=== PATIENT | female | born 1955 | race Hispanic/Latino ===

== ENCOUNTER 2018-01-13 16:14 | Inpatient (IN) | payer MEDICAID ==
--- NOTE | 2018-01-13 17:43 | ED PDOC ---
HPI: Psych/Substance Abuse Time Seen by Provider: 01/13/18 16:31 Chief Complaint (Nursing): Psychiatric Evaluation Chief Complaint (Provider): Depression History Per: Patient History/Exam Limitations: no limitations Onset/Duration Of Symptoms: Persistent Current Symptoms Are (Timing): Still Present Suicide/Self Injury Attempted (Context): None Associated Symptoms: Anxiety, Depression, Suicidal Thoughts Additional Complaint(s): Patient is a 62 year old female with a history of depression and anxiety who presents to the ED with complaints of worsening depression. Patient states that her son recently moved out and used to visit her daily, but now only visits her weekly. Patient states she feels lonely and has recently had thoughts to hurt herself, although she does not have a plan to do so. Patient denies any prior suicide attempts, visual or auditory hallucinations. Patient states she is compliant with her medications but does not feel like they are helping. Otherwise: (-) fever (-) SOB (-) chest pain (-) abdominal pain. PMD: Magnus Past Medical History Reviewed: Historical Data, Nursing Documentation, Vital Signs Vital Signs: Last Vital Signs Temp 98.5 F 01/13/18 16:18 Pulse 92 H 01/13/18 16:18 Resp 16 01/13/18 16:18 BP 124/84 01/13/18 16:18 Pulse Ox 96 01/13/18 16:18 - Medical History PMH: Anxiety, Arthritis, Depression, Diabetes, Emphysema - Family History Family History: States: Unknown Family Hx - Living Arrangements Living Arrangements: Other (halfway) - Social History Current smoker - smoking cessation education provided: Yes (1/2ppd) Alcohol: None Drugs: Denies - Home Medications Home Medications: Ambulatory Orders Medication Instructions Recorded Albuterol HFA [Ventolin HFA 90 2 puff IH Q4 PRN 01/14/18 mcg/actuation (8 g)] Dicyclomine [Bentyl] 20 mg PO QID 01/14/18 Fluticasone/Vilanterol [Breo 1 each IH DAILY 01/14/18 Ellipta 200-25 Mcg INH] Ibuprofen [Advil] 200 mg PO Q8 PRN 01/14/18 LORazepam [Ativan] 0.5 mg PO DAILY PRN 01/14/18 Naproxen [Naprosyn] 500 mg PO BID 02/15/18 QUEtiapine [SEROquel] 50 mg PO HS 01/14/18 QUEtiapine [SEROquel] 100 mg PO HS 01/14/18 Tiotropium [place] Inhaler 1 inhaler INH DAILY 01/14/18 [Spiriva Inhalation Handihaler Device] Tiotropium [Spiriva] 18 mcg IH DAILY 01/14/18 Zolpidem [Ambien] 10 mg PO HS PRN 01/14/18 buPROPion [Bupropion HCl] 75 mg PO DAILY 01/14/18 oxyCODONE/Acetaminophen [Percocet 1 tab PO Q6 PRN 01/14/18 5/325 mg Tab] - Allergies Allergies/Adverse Reactions: Allergies Allergy/AdvReac Type Severity Reaction Status Date / Time No Known Allergies Allergy Verified 01/13/18 16:18 Review of Systems Psych: Positive for: Anxiety, Depression, Suicidal ideation Physical Exam - Reviewed Nursing Documentation Reviewed: Yes Vital Signs Reviewed: Yes - Physical Exam Appears: Positive for: Non-toxic, No Acute Distress Head Exam: Positive for: NORMOCEPHALIC Skin: Positive for: Normal Color, Warm, Dry Eye Exam: Positive for: Normal appearance. Negative for: Nystagmus Neck: Positive for: Supple Cardiovascular/Chest: Positive for: Regular Rate, Rhythm Respiratory: Positive for: Normal Breath Sounds Gastrointestinal/Abdominal: Positive for: Soft. Negative for: Tenderness, Mass , Distended, Guarding - Laboratory Results Result Diagrams: 01/13/18 20:00 01/13/18 20:00 - ECG ECG: Positive for: Interpreted By Me, Viewed By Me ECG Rhythm: Positive for: Normal ST Segment, Sinus Rhythm Rate: 79 O2 Sat by Pulse Oximetry: 96 (RA) Pulse Ox Interpretation: Normal Medical Decision Making Medical Decision Makin Initial impression: Depression Patient placed on 1:1 observation secondary to suicidal ideation at 1645. Consult to CRISIS team placed at 1700. [phone] Crisis screened patient and request medical clearance. * EKG * Labs * UDrug * CXR * UA 2109 CXR: NAD Labs reviewed: no clinically significant abnormalities Patient is medically cleared for psychiatric evaluation. 223 Patient pending [facility] acceptance at patient's request. 2329 * EtOH serum 0000 Patient signed out to Aria Avina PA-C pending [facility] acceptance and EtOH serum. Scribe Attestation: Documented by Lin Bishop, acting as a scribe for Claudia Will PA-C. Provider Scribe Attestation: All medical record entries made by the Scribe were at my direction and personally dictated by me. I have reviewed the chart and agree that the record accurately reflects my personal performance of the history, physical exam, medical decision making, and the department course for this patient. I have also personally directed, reviewed, and agree with the discharge instructions and disposition. Disposition - Clinical Impression Clinical Impression: Suicidal ideation - Patient ED Disposition Is Patient to be Admitted: Transfer of Care - Disposition Disposition: Transfer of Care Disposition Time: 00:00 Condition: STABLE Patient Signed Over To: Aria Avina Handoff Comments: pending [facility] acceptance and EtOH serum
[2018-01-13 19:50] LABS: SQUAMOUS EPITHIAL 1 /hpf (0-5); URINE BILIRUBIN NEGATIVE (NEGATIVE); URINE BLOOD NEGATIVE (NEGATIVE); URINE CLARITY CLEAR (Clear); URINE COLOR STRAW (YELLOW); URINE GLUCOSE (UA) NEG (Normal); URINE LEUKOCYTE ESTERASE NEG Leu/uL (Negative); URINE NITRATE NEGATIVE (NEGATIVE); URINE PROTEIN NEGATIVE (NEGATIVE); URINE UROBILINOGEN 0.2-1.0 mg/dL (0.2-1.0)
[2018-01-13 20:04] LABS: BENZODIAZEPINES, UR NEGATIVE (NEGATIVE); OPIATES, UR NEGATIVE (NEGATIVE)
[2018-01-13 20:09] LABS: BARBITURATES, UR NEGATIVE (NEGATIVE); PHENCYCLIDINE, UR NEGATIVE (NEGATIVE)
[2018-01-13 20:40] LABS: BASO % 0.4 % (0.0-2.0); EOS # 0.1 K/uL (0.0-0.7); EOS % 1.3 % (0.0-4.0); LYMPH # 1.6 K/uL (1.0-4.3); LYMPH % 23.8 % (20.0-40.0); MEAN CELL VOLUME 96.8 fl (81.0-99.0); MEAN PLATELET VOLUME 8.7 fl (7.2-11.7); MONO # 0.5 K/uL (0.0-0.8); MONO % 7.4 % (0.0-10.0); NEUT # 4.6 K/uL (1.8-7.0); NEUT % 67.1 % (50.0-75.0); NRBC % 0.1 % (0.0-0.0); RBC 3.87 Mil/uL (3.80-5.20); RED CELL DISTRIBUTION WIDTH 14.6 % (11.5-14.5); WHITE BLOOD COUNT 6.9 K/uL (4.8-10.8)
[2018-01-13 20:43] LABS: ALB/GLOB RATIO 1.5 (1.0-2.1); ALBUMIN 3.8 g/dL (3.5-5.0); ALT/SGPT 25 U/L (9-52); AST/SGOT 15 U/L (14-36); BLOOD UREA NITROGEN 16 mg/dl (7-17); CALCIUM 9.1 mg/dL (8.4-10.2); GFR AFRICAN-AMERICAN > 60; GFR NON-AFRICAN AMERICAN > 60
--- NOTE | 2018-01-14 05:18 | ED PDOC ---
- Laboratory Results Result Diagrams: 01/13/18 20:00 01/13/18 20:00 - ECG O2 Sat by Pulse Oximetry: 95 <Aria Avina - Last Filed: 01/14/18 05:15> - Laboratory Results Result Diagrams: 01/13/18 20:00 01/13/18 20:00 <Grant Thomas - Last Filed: 01/14/18 06:59> - Progress ED Course And Treament: 00:00 CAse endorsed to typewriters functional tester from Nicolette BONE pending [facility] eval 1:30 Patient resting comfortably; no distress 3:00 Patient resting comfortably; no distress 4:30 Patient sleeping; no distress 6:00 Patient awake, no distress (Aria Avina) Disposition <Aria Avina - Last Filed: 01/14/18 05:15> - POA Present On Arrival: None - Disposition Disposition: Transfer of Care Disposition Time: 07:00 Patient Signed Over To: Rachel Mantilla Handoff Comments: pending [facility] eval <Grant Thomas - Last Filed: 01/14/18 06:59> - Clinical Impression Clinical Impression: Suicidal ideation - Disposition Condition: STABLE Forms: [facility] (Italian) Addendum <Aria Avina - Last Filed: 01/14/18 05:15> <Grant Thomas - Last Filed: 01/14/18 06:59> Addendum: 01/14/18 06:58 Pt. stable. Pending decision by [facility]. Will endorse to dR. Mantilla. ( Grant Thomas)
--- NOTE | 2018-01-14 07:32 | ED PDOC ---
- Laboratory Results Result Diagrams: 01/13/18 20:00 01/15/18 06:50 - ECG O2 Sat by Pulse Oximetry: 95 Medical Decision Making Medical Decision Makin:00 --Patient was transferred to vt by Dr. Thomas, pending [facility] [place]. Disposition - Clinical Impression Clinical Impression: Depression - POA Present On Arrival: None - Disposition Disposition: Admitted as In-Patient Disposition Time: 07:55 Condition: STABLE
[2018-01-14] MEDS ORDERED: Magnesium Hydroxide Susp 30 ml UD PO PRN (09:21)
[2018-01-14] MEDS ORDERED: Alum-Mag Hydrox-Simethicone Susp (30 mL) PO PRN (09:21)
[2018-01-14] MEDS ORDERED: Bismuth Subsalicylate 262 mg/15 ml Sus (240 ml) PO PRN (09:21)
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
--- NOTE | 2018-01-14 10:56 | CARD ---
APPROVED REPORT EKG Measurement Heart [id number] <Conclusion> Normal sinus rhythm Normal ECG
[2018-01-14] MEDS ORDERED: DiphenhydrAMINE 50 mg/ml Inj IM PRN (11:35)
--- NOTE | 2018-01-14 11:42 | RAD ---
HISTORY: Medical clearance. COMPARISON: No prior. TECHNIQUE: Chest PA and lateral FINDINGS: LUNGS: Minor linear atelectasis and or scarring right middle lobe region. There may also be some minor left basilar atelectasis. Bilateral of paratracheal densities most likely represents great vessels PLEURA: No significant pleural effusion identified. No pneumothorax apparent. CARDIOVASCULAR: Heart appears enlarged. OSSEOUS STRUCTURES: No significant abnormalities. VISUALIZED UPPER ABDOMEN: Normal. OTHER FINDINGS: None. IMPRESSION: Minor linear atelectasis and or scarring right middle lobe region. There may also be some minor left basilar atelectasis.
[2018-01-14] MEDS ORDERED: Pneumococcal 23-Valent Vaccine IM ONE (13:07)
[2018-01-14 15:05] LABS: HDL CHOLESTEROL 51 MG/DL (30-70)
[2018-01-14 15:17] LABS: LDL CHOLESTEROL 109 mg/dL (0-129)
[2018-01-14] MEDS ORDERED: Influenza Vaccine 18yr & older 0.5 ML/45 MCG SYR IM ONE (17:59)
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
[2018-01-14] MEDS: Naproxen 500 MG TAB PO SCH (22:06)
[2018-01-14] MEDS: Albuterol HFA 90 mcg/actuation (8 g) INH PRN (22:07)
[2018-01-14] MEDS ORDERED: Albuterol-Ipratrop 3 mg / 0.5 (3 ml) UD INH PRN (23:20)
[2018-01-15 07:29] LABS: BLOOD UREA NITROGEN 15 mg/dl (7-17); GFR AFRICAN-AMERICAN > 60; GFR NON-AFRICAN AMERICAN > 60; HDL CHOLESTEROL 51 MG/DL (30-70)
[2018-01-15 07:40] LABS: LDL CHOLESTEROL 123 mg/dL (0-129)
[2018-01-15 07:46] LABS: T4 7.57 ug/dl (5.5-11.0)
[2018-01-15] MEDS: Naproxen 500 MG TAB PO SCH ×2 (08:50→21:42)
[2018-01-15] MEDS: Tiotropium 18 mcg Cap For Inhalation INH SCH (08:54)
[2018-01-15 17:32] LABS: FOLATE 10.1 ng/mL
[2018-01-15] MEDS: Oxycodone/Acetaminophen 5/325 mg Tab PO PRN (17:50)
--- NOTE | 2018-01-15 18:40 | PCM.PYCHPN ---
Psychiatric Progress Note - Psychiatric Progress Note Patient seen today, length of contact: chart reviewed case discussed with team Patient Chief Complaint: pt reports slept last night awakening feeling rested, notes review that pt slept 7 hours un interrupted sleep. reports feeling "little calmer-feels better with 0.5mg p 12n and 0.5mg po 22:00". staff report that pt has been adherent with treatment. 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 Problems Identified/Issues Discussed: alteration in mood alteration self care alteration in coping Medical Problems: per chart Diagnostic Results: per psychiatry per medicine per nursing per social work DSM 5 Symptoms Update: anxiety, some pacing, somewhat decreased frustration tolerance although pleasant on unit Medication Change: No Medical Record Reviewed: Yes Consults ordered or reviewed: pt being followed by hospitalist Mental Status Examination - Cognitive Function Orientation: Person, Place, Situation, Time Fund of Knowledge: WN Decription of patient's judgement and insights: impaired - Mood Mood: Depressed, Anxious - Affect Affect: Constricted - Formal Thought Process Formal Thought Process: No Impairment - Homicidal Ideation Homicidal Ideation: No Goal/Treatment Plan - Goal/Treatment Plan Need for Continued Stay: Remain at risks for inpatient hospitalization, Severe depression anxiety, Discharge may exacerbated symptoms Progress Toward Problem(s) and Goals/Treatment Plan: inpt admission per attending vital signs and clinical observation per protocol and per status prns per protocol hospitalist consult nutrition consult discharge planning in progress Estimated Date of D/C: 01/20/18 - Smoking Cessation Smoking Cessation Initiated: No Reason for not providing: pt deferred
--- NOTE | 2018-01-16 06:32 | CON ---
INITIAL CONSULTATION DATE: HISTORY OF PRESENT ILLNESS: This is a 62-year-old female with history of multiple medical problems including degenerative spine disease and degenerative joint disease on chronic pain management. The patient also has multiple abdominal surgery for hernia repair. The patient was admitted to psych floor for depression and decompensation. Medical consultation called for medical followup while the patient is in Psychiatric cool. The patient denied to have any chest pain, shortness of breath, nausea, vomiting and other review of system is negative. ALLERGIES: NO KNOWN ALLERGY. MEDICATIONS: As per MAR. PAST MEDICAL HISTORY: Denied smoking, ETOH or substance abuse. FAMILY HISTORY: Not contributory. PHYSICAL EXAMINATION: GENERAL: The patient is in bed, comfortable, not in any cardiopulmonary distress. VITAL SIGNS: Blood pressure 116/72, temperature 98.2, respiratory rate 18 and pulse 81. HEENT: Pupils equal, reactive to light. Normal-appearing mucosa of the conjunctivae, oropharyngeal and nasal membrane mucosa. NECK: Supple. No JVD. No carotid bruit. No lymph node. No thyromegaly. CHEST AND LUNGS: Bilateral good air exchange. No rales. No rhonchi. CARDIOVASCULAR SYSTEM: PMI not localized. S1 and S2. No additional sounds. ABDOMEN: Normoactive bowel sounds. No tenderness. No organomegaly. No masses. EXTREMITIES: No cyanosis. No clubbing. No edema. 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 No neurological deficits could be appreciated. ASSESSMENT: Degenerative spine disease, mixed degenerative joint disease, status post recurrent abdominal hernia repair. PLAN: Continue current medications. Resume the patient's home medications. Followup blood work done and physical therapy. Anthony Gonsales MD
[2018-01-16] MEDS: Tiotropium 18 mcg Cap For Inhalation INH SCH (08:49)
[2018-01-16] MEDS: Oxycodone/Acetaminophen 5/325 mg Tab PO PRN ×2 (11:40→21:24)
[2018-01-16] MEDS: Albuterol HFA 90 mcg/actuation (8 g) INH PRN (21:20)
[2018-01-17] MEDS: Tiotropium 18 mcg Cap For Inhalation INH SCH (08:29)
[2018-01-17] MEDS: Oxycodone/Acetaminophen 5/325 mg Tab PO PRN ×2 (08:33→19:32)
[2018-01-17] MEDS: Albuterol HFA 90 mcg/actuation (8 g) INH PRN (08:39)
--- NOTE | 2018-01-17 11:39 | PN ---
DATE: 01/16/2018 DAILY PROGRESS NOTE SUBJECTIVE: The patient is seen on 01/16/2018. Her pain was controlled. PHYSICAL EXAMINATION: VITAL SIGNS: Blood pressure of 101/62, temperature of 98.2, respiratory rate of 20 and pulse of 80. HEENT: Pupils are equal and reactive to light. Normal-appearing mucosa of the conjunctivae, oropharynx, and nasal membrane mucosa. NECK: Supple. No JVD. No carotid bruit. No lymph node. No thyromegaly. CHEST AND LUNGS: Bilateral symmetrical expansion. Good air exchange. No rales and no rhonchi. CARDIOVASCULAR SYSTEM: PMI not localized. S1 and S2. No additional sounds. ABDOMEN: Normoactive bowel sounds. No tenderness. No organomegaly. No masses. EXTREMITIES: No cyanosis. No clubbing. No edema. CENTRAL NERVOUS SYSTEM: Alert, awake, and oriented x2. No neurological deficit could be appreciated. ASSESSMENT: 1. Degenerative spine disease with radicular pain. 2. Degenerative joint disease with bilateral knee osteoarthritis. 3. Obesity. 4. History of obstructive lung disease. PLAN: Continue current pain management as needed. Continue the bronchodilators as well as physical therapy. We will follow up with you. Anthony Gonsales MD
--- NOTE | 2018-01-17 16:41 | PCM.PYCHPN ---
Psychiatric Progress Note - Psychiatric Progress Note Patient seen today, length of contact: late note for 01/16/18 chart reviewed case discussed with team Patient Chief Complaint: reports doing somewhat better, continues to use walker with wheels seat, staff report pt is rx adherent, appears to be asking for both benzodiazepine ( lorazepam) and opiates on regular basis, reports chronic anxiety yet reports difficulty with energy and "getting things going am" Problems Identified/Issues Discussed: alteration in mood alteration self care alteration in coping Medical Problems: per chart Diagnostic Results: per psychiatry per medicine per nursing per social work DSM 5 Symptoms Update: alteration in mood alteration in pain control benzodiazepine, opiate,ambien Medication Change: No Medical Record Reviewed: Yes Consults ordered or reviewed: pt being followed by dr bragg Mental Status Examination - Cognitive Function Orientation: Person, Place, Situation, Time Fund of Knowledge: WN Decription of patient's judgement and insights: impaired - Mood Mood: Depressed, Anxious - Affect Affect: Constricted - Formal Thought Process Formal Thought Process: No Impairment - Homicidal Ideation Homicidal Ideation: No Goal/Treatment Plan - Goal/Treatment Plan Need for Continued Stay: Remain at risks for inpatient hospitalization, Severe depression anxiety, Discharge may exacerbated symptoms Progress Toward Problem(s) and Goals/Treatment Plan: inpt/milieu vital signs and clinical observation per protocol and per status prns per protocol start buproprion 75mg po am hospitalist consult nutrition consult discharge planning in progress Estimated Date of D/C: 01/20/18 - Smoking Cessation Smoking Cessation Initiated: No Reason for not providing: defered
--- NOTE | 2018-01-17 16:46 | PCM.PYCHPN ---
Psychiatric Progress Note - Psychiatric Progress Note Patient seen today, length of contact: late note for 01/16/18 chart reviewed case discussed with team Patient Chief Complaint: reports doing somewhat better, continues to use walker with wheels seat, staff report pt is rx adherent, appears to be asking for both benzodiazepine ( lorazepam) and opiates on regular basis, reports chronic anxiety yet reports difficulty with energy and "getting things going am" Problems Identified/Issues Discussed: alteration in mood alteration self care alteration in coping Medical Problems: per chart Diagnostic Results: per psychiatry per medicine per nursing per social work DSM 5 Symptoms Update: alteration in mood alteration pain control Medication Change: No Medical Record Reviewed: Yes Consults ordered or reviewed: pt being followed by dr bragg Mental Status Examination - Cognitive Function Orientation: Person, Place, Situation, Time Attention: WNL Concentration: WNL Association: WNL Fund of Knowledge: WN Decription of patient's judgement and insights: impaired - Mood Mood: Depressed, Anxious - Affect Affect: Constricted - Formal Thought Process Formal Thought Process: No Impairment - Homicidal Ideation Homicidal Ideation: No Goal/Treatment Plan - Goal/Treatment Plan Need for Continued Stay: Remain at risks for inpatient hospitalization, Severe depression anxiety, Discharge may exacerbated symptoms Progress Toward Problem(s) and Goals/Treatment Plan: inpt/milieu vital signs and clinical observation per protocol and per status prns per protocol start buproprion sr 150mg po hospitalist consult nutrition consult discharge planning in progress Estimated Date of D/C: 01/20/18 - Smoking Cessation Smoking Cessation Initiated: No Reason for not providing: pt defers
[2018-01-18] MEDS: buPROPion SR 150 MG TABLET PO SCH (08:34)
[2018-01-18] MEDS: Tiotropium 18 mcg Cap For Inhalation INH SCH (08:34)
--- NOTE | 2018-01-18 11:26 | PCM.PYCHPN ---
Psychiatric Progress Note - Psychiatric Progress Note Patient seen today, length of contact: Patient evaluated, case discussed with team, chart reviewed Patient Chief Complaint: "I'm depressed." Problems Identified/Issues Discussed: Patient continues to report depressed mood in the context of having social stressors, lack of financial resources and not wanting to return to her home. When told she will be discharged in a few days, patient makes vague suicidal ideation comments, without any plan or intent. Patient reports that she misses her dog and feels depressed and lonely. She reports intermittent feelings of hopelessness and anxiety. Wellbutrin was increased today. Coping strategies to deal with her depression and anxiety were discussed. Psychoeducation provided on the importance of compliance with treatment and outpatient therapy. Medication Change: Yes (Wellbutrin increased to 150 mg PO Daily) Medical Record Reviewed: Yes Consults ordered or reviewed: Medicine consult Mental Status Examination - Cognitive Function Orientation: Person, Place, Situation, Time Memory: Intact Attention: WNL Concentration: WNL Association: WNL Fund of Knowledge: [facility] Decription of patient's judgement and insights: Fair I/J - Mood Mood: Depressed, Anxious - Affect Affect: Constricted - Formal Thought Process Formal Thought Process: No Impairment Psychotic Thoughts and Behaviors: No AH/VH/paranoia/delusions - Suicidal Ideation Suicidal Ideation: Yes Plan: Vague ideation w/o plan or intent; stated in response to not wanting to be discharged from the hospital - Homicidal Ideation Homicidal Ideation: No Goal/Treatment Plan - Goal/Treatment Plan Need for Continued Stay: Remain at risks for inpatient hospitalization, Severe depression anxiety, Discharge may exacerbated symptoms Progress Toward Problem(s) and Goals/Treatment Plan: MDD; CINDY -Increase Wellbutrin SR to 150 mg PO Daily -Continue Seroquel 150 mg PO HS -Individual and group therapy -Disposition planning -Obtain collateral history Estimated Date of D/C: 01/20/18
[2018-01-18] MEDS: Oxycodone/Acetaminophen 5/325 mg Tab PO PRN (13:17)
--- NOTE | 2018-01-18 22:18 | PN ---
DAILY PROGRESS NOTE DATE: 01/18/2018 SUBJECTIVE: The patient is seen today, 01/18/2018. She is not in any cardiopulmonary distress. The patient is complaining of burning sensation of both hands. PHYSICAL EXAMINATION: VITAL SIGNS: Blood pressure is 109/65, temperature 97.9, respiratory rate 18, and pulse 72. HEENT: Pupils are equal and reactive to light. Normal-appearing mucosa of the conjunctivae, oropharynx, and nasal membrane mucosa. NECK: Supple. No JVD. No carotid bruit. No lymph node. No thyromegaly. CHEST AND LUNGS: Bilaterally symmetrical expansion. Good air exchange. No rales. No rhonchi. CARDIOVASCULAR: PMI not localized. S1 and S2. No additional sounds. ABDOMEN: Normoactive bowel sounds. No tenderness. No organomegaly. No masses. EXTREMITIES: No cyanosis. No clubbing. No edema. CENTRAL NERVOUS SYSTEM: Alert, awake, and oriented x3. No neurological deficit could be appreciated. ASSESSMENT: Degenerative joint and spine disease, obstructive lung disease, bilateral burning sensation of both hands with vitamin B12 is 247 likely secondary to vitamin B12 deficiency. PLAN: We will order vitamin B12 daily for . Continue current medications. Anthony Gonsales MD
[2018-01-19] MEDS: Albuterol HFA 90 mcg/actuation (8 g) INH PRN (03:13)
[2018-01-19] MEDS: Oxycodone/Acetaminophen 5/325 mg Tab PO PRN ×2 (08:38→18:17)
[2018-01-19] MEDS: buPROPion SR 150 MG TABLET PO SCH (08:40)
[2018-01-19] MEDS: Tiotropium 18 mcg Cap For Inhalation INH SCH (08:40)
[2018-01-19] MEDS: Thiamine 100 mg/ml Inj IM SCH (08:41)
--- NOTE | 2018-01-19 09:27 | PCM.PYCHPN ---
Psychiatric Progress Note - Psychiatric Progress Note Patient seen today, length of contact: Patient evaluated, case discussed with team, chart reviewed Patient Chief Complaint: "I'm depressed." Problems Identified/Issues Discussed: Patient continues to report depressed mood. She denies current suicidal ideation/plan/intent. She reports low motivation to care for herself. She denies adverse effects to medications Medication Change: No Medical Record Reviewed: Yes Consults ordered or reviewed: Medicine consult Mental Status Examination - Cognitive Function Orientation: Person, Place, Situation, Time Memory: Intact Attention: WNL Concentration: WNL Association: WNL Fund of Knowledge: [facility] Decription of patient's judgement and insights: Fair I/J - Mood Mood: Depressed, Anxious - Affect Affect: Constricted - Formal Thought Process Formal Thought Process: No Impairment Psychotic Thoughts and Behaviors: No AH/VH/paranoia/delusions - Suicidal Ideation Suicidal Ideation: No - Homicidal Ideation Homicidal Ideation: No Goal/Treatment Plan - Goal/Treatment Plan Need for Continued Stay: Remain at risks for inpatient hospitalization, Severe depression anxiety, Discharge may exacerbated symptoms Progress Toward Problem(s) and Goals/Treatment Plan: MDD; CINDY; Personality Disorder NOS -Continue Wellbutrin SR 150 mg PO Daily -Continue Seroquel 150 mg PO HS -Individual and group therapy -Disposition planning -Obtain collateral history -PT evaluation Estimated Date of D/C: 01/21/18
--- NOTE | 2018-01-19 20:58 | PN ---
DAILY PROGRESS NOTE DATE: 01/19/2018 SUBJECTIVE: The patient is seen today, 01/19/2018. She is not in any cardiopulmonary distress. The patient was started on vitamin B12 injections. PHYSICAL EXAMINATION: VITAL SIGNS: Blood pressure 96/69, temperature 98.2, respiratory rate 19, and pulse 84. HEENT: Pupils are equal and reactive to light. Normal-appearing mucosa of the conjunctivae, oropharynx, and nasal membrane mucosa. NECK: Supple. No JVD. No carotid bruit. No lymph node. No thyromegaly. CHEST AND LUNGS: Bilaterally symmetrical expansion. Good air exchange. No rales. No rhonchi. CARDIOVASCULAR: PMI not localized. S1 and S2. No additional sounds. ABDOMEN: Normoactive bowel sounds. No tenderness. No organomegaly. No masses. EXTREMITIES: No cyanosis. No clubbing. No edema. CENTRAL NERVOUS SYSTEM: Alert, awake, and oriented x2. No neurological deficit could be appreciated. ASSESSMENT: 1. Obstructive lung disease, which is controlled on current bronchodilators. 2. Degenerative joint and spine disease. 3. Vitamin B12 deficiency. PLAN: Continue current medications and continue vitamin B12 injections. Anthony Gonsales MD
[2018-01-20] MEDS: Oxycodone/Acetaminophen 5/325 mg Tab PO PRN ×2 (06:38→19:54)
[2018-01-20] MEDS: Albuterol HFA 90 mcg/actuation (8 g) INH PRN (06:39)
[2018-01-20] MEDS: Tiotropium 18 mcg Cap For Inhalation INH SCH (09:02)
[2018-01-20] MEDS: Thiamine 100 mg/ml Inj IM SCH (09:03)
[2018-01-20] MEDS: buPROPion SR 150 MG TABLET PO SCH (09:04)
--- NOTE | 2018-01-20 10:13 | PCM.PYCHPN ---
Psychiatric Progress Note - Psychiatric Progress Note Patient seen today, length of contact: Patient evaluated, case discussed with team, chart reviewed Patient Chief Complaint: "I'm depressed." Problems Identified/Issues Discussed: Patient continues to report depressed mood, but reports that her mood is starting to improve. She denies current suicidal ideation/plan/intent. She is more motivated and goal oriented and interested in [facility] following discharge. She denies adverse effects to medications Medication Change: No Medical Record Reviewed: Yes Consults ordered or reviewed: Medicine consult, Physical Therapy Mental Status Examination - Cognitive Function Orientation: Person, Place, Situation, Time Memory: Intact Attention: WNL Concentration: WNL Association: [facility] Fund of Knowledge: [facility] Decription of patient's judgement and insights: Fair I/J - Mood Mood: Depressed, Anxious - Affect Affect: Constricted - Formal Thought Process Formal Thought Process: No Impairment Psychotic Thoughts and Behaviors: No AH/VH/paranoia/delusions - Suicidal Ideation Suicidal Ideation: No - Homicidal Ideation Homicidal Ideation: No Goal/Treatment Plan - Goal/Treatment Plan Need for Continued Stay: Severe depression anxiety, Discharge may exacerbated symptoms Progress Toward Problem(s) and Goals/Treatment Plan: MDD; CINDY; Personality Disorder NOS -Continue Wellbutrin SR 150 mg PO Daily -Continue Seroquel 150 mg PO HS -Individual and group therapy -Disposition planning- referral to [facility] -Obtain collateral history -Physical Therapy Estimated Date of D/C: 01/21/18 - Smoking Cessation Smoking Cessation Initiated: Yes
[2018-01-20 23:31] VITALS: O2SAT 95
[2018-01-21] MEDS: Albuterol HFA 90 mcg/actuation (8 g) INH PRN (05:49)
[2018-01-21] MEDS: Oxycodone/Acetaminophen 5/325 mg Tab PO PRN (05:49)
[2018-01-21] MEDS: Tiotropium 18 mcg Cap For Inhalation INH SCH (08:53)
[2018-01-21] MEDS: buPROPion SR 150 MG TABLET PO SCH (08:54)
[2018-01-21] MEDS: Thiamine 100 mg/ml Inj IM SCH (08:56)
--- NOTE | 2018-01-21 10:18 | PCM.PYCHPN ---
Psychiatric Progress Note - Psychiatric Progress Note Patient seen today, length of contact: Patient evaluated, case discussed with team, chart reviewed Patient Chief Complaint: "I'm depressed." Problems Identified/Issues Discussed: Patient reports that her depression is improving. She is more goal orient and motivated for PT. No adverse effects to medications reported. NO SI/HI/AH/VH. Medication Change: No Medical Record Reviewed: Yes Consults ordered or reviewed: Medicine consult, Physical Therapy Mental Status Examination - Cognitive Function Orientation: Person, Place, Situation, Time Memory: Intact Attention: WNL Concentration: WNL Association: WNL Fund of Knowledge: [facility] Decription of patient's judgement and insights: Fair I/J - Mood Mood: Depressed - Affect Affect: Constricted - Speech Speech: Appropriate - Formal Thought Process Formal Thought Process: No Impairment Psychotic Thoughts and Behaviors: No AH/VH/paranoia/delusions - Suicidal Ideation Suicidal Ideation: No - Homicidal Ideation Homicidal Ideation: No Goal/Treatment Plan - Goal/Treatment Plan Need for Continued Stay: Severe depression anxiety Progress Toward Problem(s) and Goals/Treatment Plan: MDD; CINDY; Personality Disorder NOS -Continue Wellbutrin SR 150 mg PO Daily -Continue Seroquel 150 mg PO HS -Individual and group therapy -Disposition planning- referral to [facility] -Obtain collateral history -Physical Therapy Estimated Date of D/C: 01/22/18
--- NOTE | 2018-01-21 21:08 | PN ---
DATE: 01/21/2018 DAILY PROGRESS NOTE SUBJECTIVE: The patient is seen today, 01/21/2018. She is not in any cardiopulmonary distress. PHYSICAL EXAMINATION: VITAL SIGNS: Blood pressure is 101/64, temperature 97.1, respiratory rate 18, and pulse 70. HEENT: Pupils are equal and reactive to light. Normal-appearing mucosa of the conjunctivae, oropharynx, and nasal membrane mucosa. NECK: Supple. No JVD. No carotid bruit. No lymph node. No thyromegaly. CHEST AND LUNGS: Bilaterally symmetrical expansion. Good air exchange. No rales. No rhonchi. CARDIOVASCULAR: PMI not localized. S1 and S2. No additional sounds. ABDOMEN: Normoactive bowel sounds. No tenderness. No organomegaly. No masses. EXTREMITIES: No cyanosis. No clubbing. No edema. CENTRAL NERVOUS SYSTEM: Alert, awake, and oriented x2. No neurological deficit could be appreciated. ASSESSMENT: 1. Degenerative joint and degenerative spine disease. 2. Vitamin B12 deficiency with symptoms of peripheral neuropathy. 3. Obstructive lung disease. PLAN: Continue current bronchodilators, B12 IM daily and pain management as needed, Physical Therapy. Anthony Gonsales MD
[2018-01-21] MEDS ORDERED: Oxycodone/Acetaminophen 5/325 mg Tab PO ONE (23:37)
[2018-01-22] MEDS: Tiotropium 18 mcg Cap For Inhalation INH SCH (09:23)
[2018-01-22] MEDS: buPROPion SR 150 MG TABLET PO SCH (09:24)
--- NOTE | 2018-01-22 12:31 | PCM.PYCHPN ---
Psychiatric Progress Note - Psychiatric Progress Note Patient seen today, length of contact: Patient evaluated, case discussed with team, chart reviewed Patient Chief Complaint: "I'm depressed." Problems Identified/Issues Discussed: Patient reports that her depression is improving. She is more goal orient and motivated for PT. No adverse effects to medications reported. NO SI/HI/AH/VH. Medication Change: No Medical Record Reviewed: Yes Consults ordered or reviewed: Medicine consult, Physical Therapy Mental Status Examination - Cognitive Function Orientation: Person, Place, Situation, Time Memory: Intact Attention: WNL Concentration: WNL Association: WNL Fund of Knowledge: [facility] Decription of patient's judgement and insights: Fair I/J - Mood Mood: Depressed - Affect Affect: Constricted - Speech Speech: Appropriate - Formal Thought Process Formal Thought Process: No Impairment Psychotic Thoughts and Behaviors: No AH/VH/paranoia/delusions - Suicidal Ideation Suicidal Ideation: No - Homicidal Ideation Homicidal Ideation: No Goal/Treatment Plan - Goal/Treatment Plan Need for Continued Stay: Severe depression anxiety Progress Toward Problem(s) and Goals/Treatment Plan: MDD; CINDY; Personality Disorder NOS -Continue Wellbutrin SR 150 mg PO Daily -Continue Seroquel 150 mg PO HS -Individual and group therapy -Disposition planning- referral to [facility] -Physical Therapy Estimated Date of D/C: 01/25/18
[2018-01-22] MEDS: Thiamine 100 mg/ml Inj IM SCH (13:01)
[2018-01-22] MEDS: Oxycodone/Acetaminophen 5/325 mg Tab PO PRN ×2 (13:09→21:46)
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
[2018-01-23 06:16] VITALS: BP 110/54; PULSE 73; RESP 20; TEMP 97.7
[2018-01-23] MEDS: Oxycodone/Acetaminophen 5/325 mg Tab PO PRN (08:46)
[2018-01-23] MEDS: Tiotropium 18 mcg Cap For Inhalation INH SCH (08:49)
[2018-01-23] MEDS: buPROPion SR 150 MG TABLET PO SCH (08:51)
--- NOTE | 2018-01-23 09:26 | PCM.PYCHDC ---
Mental Status Examination - Mental Status Examination Orientation: Person, Place, Situation, Time Memory: Intact Mood: Neutral Affect: Broad Speech: Appropriate Attention: WNL Concentration: WNL Association: WNL Fund of Knowledge: WNL Formal Thought Process: No Impairment Description of patient's judgement and insight: Fair I/J Psychotic Thoughts and Behaviors: No AH/VH/paranoia/delusions Suicidal Ideation: No Current Homicidal Ideation?: No Discharge Summary - Discharge Note Reason for Hospitalization: As per initial HPI note: "presents to er for increasing depression, feeling loneliness, son not visiting as much now only reportedly visiting once a week , reportedly is living on top floor not having elevator, has been following up with dr stewart for pain management missing dog she once had as the dog was reportedly was reason for son visiting previous treatment for depression, on off , decreased hope for future" Psychiatric History (includes Medical, Family, Personal Hx): inpt outpt psychotherapy Consultations:: List each consultation separately and include: 1. Reason for request. 2. Findings. 3. Follow-up Consultations: Medicine consult, Physical Therapy Summary of Hospital Course include:: 1. Description of specific treatment plan utilized for patients during their course of treatmen. 2. Summarize the time- course for resolution of acute symptoms and/or regressed behaviors. 3. Describe issues identified and worked on during hospitalization. 4. Describe medication utilized. 5. Describe medical problems identified and treated. 6. Reassessment of suicide risk Summary of Hospital Course: Patient was admitted to the geriatric psychiatry unit. Individual and group therapy were provided. Patient was stabilized on Wellbutrin SR 150 mg PO Daily and Seroquel 150 mg PO HS. She reports that her mood has improved. She is psychiatrically stable for discharge at this time and will be referred to [facility] for continued physical therapy. - Diagnosis (1) Major depressive disorder Current Visit: Yes Status: Chronic (2) Generalized anxiety disorder Current Visit: Yes Status: Chronic - Final Diagnosis (DSM 5) Condition upon Discharge: STABLE DSM 5: Major Depressive Disorder; Generalized Anxiety Disorder Disposition: TRANSF TO SNF Follow-up Treatment Plan: MDD; CINDY; r/o Personality Disorder NOS -Continue Wellbutrin SR 150 mg PO Daily -Continue Seroquel 150 mg PO HS -She is psychiatrically stable for discharge at this time and will be referred to [facility] for continued physical therapy. - Smoking Cessation Smoking Cessation Medication prescribed: Yes - Antipsychotic Medications Pt discharged on 2 or more routine antipsychotic medications: No
--- NOTE | 2018-01-24 19:09 | PN ---
DATE: 01/23/2018 SUBJECTIVE: The patient was seen on 01/23/2018. She was not in any cardiopulmonary distress. PHYSICAL EXAMINATION: VITAL SIGNS: Blood pressure was 110/54, temperature 97.7, respiratory rate 20, pulse 73. HEENT: Pupils equal, reactive to light. Normal-appearing mucosa of the conjunctivae, oropharynx and nasal membrane mucosa. NECK: Supple. No JVD. No carotid bruit. No lymph node. No thyromegaly. CHEST/LUNGS: Bilateral symmetrical expansion. Good air exchange. No rales, no rhonchi. CARDIOVASCULAR: System PMI not localized. S1, S2. No additional sounds. ABDOMEN: Normoactive bowel sounds. No tenderness. No organomegaly. No masses. EXTREMITIES: No cyanosis, no clubbing, no edema. TECHNICAL SUPPORT TECHNICIAN: Alert, awake, oriented x2. No neurological deficit could be appreciated. ASSESSMENT: Obstructive lung disease, smoker, vitamin B12 deficiency and morbid obesity. PLAN: Continue vitamin B12 p.o. as well as current bronchodilators and pain medicine for degenerative spine disease as needed and Physical Therapy. Anthony Gonsales MD
== END 2018-01-23 11:40 | DRG 430 ==
LOC: H.ER 16:14 → H.ERHOLD 01-14 07:55 → H.STEP 01-14 08:59
PROVIDERS: ADMIT Psychiatry & Neurology Psychiatry; ATTEND Psychiatry & Neurology Psychiatry
PROC: GZHZZZZ Group Psychotherapy (ICD-10-PCS; principal; 2018-01-14)
PROC: GZ58ZZZ Individual Psychotherapy, Cognitive-Behavioral (ICD-10-PCS; 2018-01-14)
PROC: 3E0234Z Introduction of Serum, Toxoid and Vaccine into Muscle, Percutaneous Approach (ICD-10-PCS; 2018-01-14)
DX: F32.2 Major depressive disorder, single episode, severe without psychotic features (principal); E66.01 Morbid (severe) obesity due to excess calories; R45.851 Suicidal ideations; E53.8 Deficiency of other specified B group vitamins; J43.9 Emphysema, unspecified; G89.29 Other chronic pain; Z68.41 Body mass index [BMI] 40.0-44.9, adult; F41.1 Generalized anxiety disorder; M17.0 Bilateral primary osteoarthritis of knee; F60.9 Personality disorder, unspecified; E11.9 Type 2 diabetes mellitus without complications; M47.9 Spondylosis, unspecified; G62.9 Polyneuropathy, unspecified; F17.210 Nicotine dependence, cigarettes, uncomplicated; Z23 Encounter for immunization

== ENCOUNTER 2018-11-06 04:51 | Inpatient (IN) | payer MEDICAID ==
--- NOTE | 2018-11-06 05:13 | ED PDOC ---
Psych Transfer Clearance - Clearance Statement Clearance Statement: Reviewed vital signs, lab results and transfer papers. Patient clinically stable for psychiatric admission.
[2018-11-06 05:23] VITALS: O2SAT 95
[2018-11-06] MEDS ORDERED: Bismuth Subsalicylate 262 mg/15 ml Sus (240 ml) PO PRN (05:49)
[2018-11-06] MEDS ORDERED: Alum-Mag Hydrox-Simethicone Susp (30 mL) PO PRN (05:49)
[2018-11-06] MEDS ORDERED: Magnesium Hydroxide Susp 30 ml UD PO PRN (05:49)
--- NOTE | 2018-11-06 06:03 | PCM.BM ---
<Lázaro Schwartz - Last Filed: 11/06/18 06:01> Treatment Plan Problems - Problems identified on initial assessmt Hopelessness/Helplessness Date Initiated: 11/06/18 Time Initiated: 06:02 Assessment reference: NA Status: Active Feelings of Worthlessness Date Initiated: 11/06/18 Time Initiated: 06:03 Assessment reference: NA Status: Active Altered Sleep Patterns Date Initiated: 11/06/18 Time Initiated: 06:03 Assessment reference: NA Status: Active Treatment assets and liabiliti Patient Assests: cooperative, negotiates basic needs, cognitively intact Patient Liabilities: live alone, financial problems, poor support system, relationship conflicts, medical problems - Milieu Protocol Maintain good personal hygiene: every shift Encourage regular showers, every shift Remind patient to perform daily oral care, every shift Assist patient to perform ADL's Conduct patient checks and document Observation sheet: Q15 minutes Maintain personal safety: every shift Educate patient to report safety concerns to staff, every shift Monitor environment for contraband/sharps Medication safety: Monitor for expected outcome, potential side effects: every shift, Assess barriers to learning: every shift, Assess readiness for medication education: every shift <Mini Sharp - Last Filed: 11/08/18 11:56> - Diagnosis (1) Major depressive disorder Status: Chronic Interventions: Medication management, Individual and group therapy, Psychoeducation 11/08/18 11:57 (2) Generalized anxiety disorder Status: Chronic Interventions: Medication management, Individual and group therapy, Psychoeducation 11/08/18 11:57 <Campos Farmer - Last Filed: 11/08/18 17:15> Family Contact Family involvement: Famliy/SO not involved Family contact: Patient declines to allow family contact at present Family contact name: Pt denied. - Outside Agency Agency 1 Care involvment: Following patient during stay, Information-sharing Agency contact name: AKANKSHA Johnson Agency contact number: Assistant Manager spoke with millie Johnson's [employer] case coordinator ([phone]), to give her updates on pt's progress on unit. Assistant Manager explained that pt continues to present as severely depressed with passive thoughts of suicide. Elizabeth reported that pt has been unhappy with her community case coordinator, Shannan, even though she got Shannan after she complained about her previous case coordinator, Tye. Pt now wants Tye back, but he no longer works for the organization. Elizabeth reported that pt gets home care hours with [facility] and [facility] - Goals for Treatment Patient goals for treatment: Pt unable to provide goals for treatment at this time due to severe depression and anhedonia. Discharge/Continuing Care - Education Needs Education Needs: Patient Medication, Patient Diagnosis/Disease Process, Patient Coping Skills, Patient Placement options, Patient Community resources, Patient Aftercare Safety Plan - Discharge Discharge Criteria: Tolerates medication w/o severe side effects, Free of Suicidal thoughts, Free of agitation, Normal sleep pattern, Ability to care for self, Reduction of target symptoms Discharge to:: Home - Treatment Team Participation Patient/Family/SO Statement: 11/08/18 17:15 Pt refused to attend treatment team on 11/08/18 as she reported feeling weak and nauseous. Discussed with Family/SO: No Was Patient/Family/SO present at Treatment Team Meeting: Yes
[2018-11-06 09:39] LABS: ALB/GLOB RATIO 1.2 (1.0-2.1); ALBUMIN 3.5 g/dL (3.5-5.0); ALT/SGPT 24 U/L (9-52); AST/SGOT 19 U/L (14-36); BLOOD UREA NITROGEN 16 mg/dl (7-17); GFR NON-AFRICAN AMERICAN > 60; HDL CHOLESTEROL 50 MG/DL (30-70)
[2018-11-06 09:50] LABS: LDL CHOLESTEROL 123 mg/dL (0-129)
[2018-11-06 09:51] LABS: HEMOGLOBIN 12.7 g/dL (12.0-16.0); MEAN CELL VOLUME 98.5 fl (81.0-99.0); MEAN CORPUSCULAR HEMOGLOBIN 31.7 pg (27.0-31.0); MEAN CORPUSCULAR HGB CONC 32.1 g/dL (33.0-37.0); RBC 4.02 Mil/uL (3.80-5.20); RED CELL DISTRIBUTION WIDTH 15.2 % (11.5-14.5); WHITE BLOOD COUNT 6.4 K/uL (4.8-10.8)
[2018-11-06 09:59] LABS: T4 7.17 ug/dl (5.5-11.0)
[2018-11-06] MEDS ORDERED: Pneumococcal 23-Valent Vaccine IM ONE (10:00)
[2018-11-06 10:17] LABS: FERRITIN 43.3 ng/Ml (11.1-264.0)
[2018-11-06 10:50] LABS: % IRON SATURATION 38 % (20-55); IRON 107 ug/dL (37-170); TOTAL IRON BINDING CAPACITY 286 ug/dL (250-450)
[2018-11-06] MEDS ORDERED: Iohexol 240 (50 ml) PO ONE (14:10)
[2018-11-06] MEDS: Oxycodone/Acetaminophen 5/325 mg Tab PO PRN ×2 (15:35→21:39)
[2018-11-06] MEDS: Tiotropium 18 mcg Cap For Inhalation INH SCH (16:41)
[2018-11-06 17:38] LABS: FOLATE 18.1 ng/mL
[2018-11-07] MEDS: Tiotropium 18 mcg Cap For Inhalation INH SCH (09:08)
[2018-11-07] MEDS: Oxycodone/Acetaminophen 5/325 mg Tab PO PRN ×2 (09:41→21:33)
--- NOTE | 2018-11-07 10:09 | CP.PCM.CON ---
Past Patient History - Past Social History Smoking Status: Heavy Smoker > 10 Cigarettes Daily - CARDIAC Hx Cardiac Disorders: No Hx Hypertension: No - PULMONARY Hx Chronic Obstructive Pulmonary Disease (COPD): Yes Hx Emphysema: Yes Hx Tuberculosis: No - NEUROLOGICAL HX Cerebrovascular Accident: No Hx Seizures: No - ENDOCRINE/METABOLIC Hx Endocrine Disorders: Yes (NIDDM) - HEMATOLOGICAL/ONCOLOGICAL Hx Cancer: No Hx Human Immunodeficiency Virus (HIV): No - MUSCULOSKELETAL/RHEUMATOLOGICAL Hx Arthritis: Yes Hx Falls: No - GENITOURINARY/GYNECOLOGICAL Hx Sexually Transmitted Disorders: No - PSYCHIATRIC Hx Substance Use: No - SURGICAL HISTORY Hx Tonsillectomy: Yes - ANESTHESIA Hx Anesthesia: Yes Hx Anesthesia Reactions: No Hx Malignant Hyperthermia: No Meds Allergies/Adverse Reactions: Allergies Allergy/AdvReac Type Severity Reaction Status Date / Time No Known Allergies Allergy Verified 01/13/18 16:18 - Medications Medications: Current Medications Acetaminophen (Tylenol 325mg Tab) 650 mg PO Q4 PRN PRN Reason: Pain, moderate (4-7) Al Hydrox/Mg Hydrox/Simethicone (Maalox Plus 30 Ml) 30 ml PO Q4 PRN PRN Reason: Dyspepsia Bismuth Subsalicylate (Pepto-Bismol) 524 mg PO Q4 PRN PRN Reason: Diarrhea Bupropion HCl (Wellbutrin) 75 mg PO DAILY [facility] Last Admin: 11/07/18 09:08 Dose: 75 mg Buspirone HCl (Buspar) 5 mg PO BID [facility] Last Admin: 11/07/18 09:08 Dose: 5 mg Lorazepam (Ativan) 0.5 mg PO HS PRN PRN Reason: Insomnia Stop: 11/20/18 05:50 Lorazepam (Ativan) 0.5 mg PO Q6 PRN PRN Reason: Anixety/Agitation Stop: 11/20/18 05:50 Last Admin: 11/06/18 21:40 Dose: 0.5 mg Magnesium Hydroxide (Milk Of Magnesia) 30 ml PO HS PRN PRN Reason: Constipation Oxycodone/Acetaminophen (Percocet 5/325 Mg Tab) 1 tab PO Q6 PRN PRN Reason: Pain, severe (8-10) Stop: 11/09/18 14:49 Last Admin: 11/07/18 09:41 Dose: 1 tab Quetiapine Fumarate (Seroquel) 50 mg PO HS [facility] Last Admin: 11/06/18 21:40 Dose: 50 mg Tiotropium [place] (Spiriva) 18 mcg INH DAILY [facility] Last Admin: 11/07/18 09:08 Dose: 18 mcg Results - Vital Signs Recent Vital Signs: Last Vital Signs Temp 97.8 F 11/07/18 06:32 Pulse 71 11/07/18 06:32 Resp 18 11/07/18 06:32 BP 117/71 11/07/18 06:32 Pulse Ox 95 11/06/18 05:11 - Labs Result Diagrams: 11/06/18 08:45 11/06/18 08:45 Labs: Laboratory Results - last 24 hr 11/06/18 11/06/18 11/06/18 08:45 08:45 08:45 Iron 107 TIBC 286 % Saturation 38 Ferritin 43.3 Vitamin B12 357 Folate 18.1 Thyroxine (T4) 7.17 TSH 3rd Generation 1.84 RPR Nonreactive
--- NOTE | 2018-11-07 11:02 | PCM.PYCHPN ---
Psychiatric Progress Note - Psychiatric Progress Note Patient seen today, length of contact: pt evaluated discussed with team chart reviewed Patient Chief Complaint: I am tired and depressed Problems Identified/Issues Discussed: pt evaluated, seen in bed unkempt, low energy poor motivation, reported poor sleep requesting higher dose of seroquel, discussed with patient possible metabolic effects of seroquel, pt reported previous diagnosis of bipolar disorder, describing possible previous manic attacks, discussed gradual increase in dose of seroquel for mood stabilization, encouraged pt to attend activities in day room, pt denied perceptual disturbances, denied any current active thoughts of self harm on the unit Medical Problems: hx of previous psychiatric hospitalizations partial compliance with treatment DSM 5 Symptoms Update: depression/ rule out bipolar disorder depressed generalized anxiety disorder Medication Change: Yes (increase seroquel) Medical Record Reviewed: Yes Mental Status Examination - Cognitive Function Orientation: Person, Place, Situation Memory: Intact Attention: WNL Concentration: Poor Association: WNL Fund of Knowledge: Poor Decription of patient's judgement and insights: partial insight poor judgment - Mood Mood: Depressed, Anxious - Affect Affect: Constricted, Depressed - Speech Speech: Loud - Formal Thought Process Formal Thought Process: Circumstantial Psychotic Thoughts and Behaviors: pt denied, non elicited - Suicidal Ideation Suicidal Ideation: No - Homicidal Ideation Homicidal Ideation: No Goal/Treatment Plan - Goal/Treatment Plan Need for Continued Stay: Severe depression anxiety, Discharge may exacerbated symptoms Progress Toward Problem(s) and Goals/Treatment Plan: wellbutrin 75mg daily buspar 5mg bid discontinue trazodone 50mg qhs increase seroquel 100mg qhs monitor pt for psychopharmacological effects and side effect profile follow up on CT results with OB/ MECHANICAL MAINTENANCE ENGINEER
[2018-11-07] MEDS ORDERED: Iohexol 240 (50 ml) PO ONE (11:30)
--- NOTE | 2018-11-07 15:13 | CT ---
Date of service: 11/07/2018 PROCEDURE: CT Abdomen and Pelvis without intravenous contrast HISTORY: Pt reports stool leakage from vagina COMPARISON: None. TECHNIQUE: Technique. Contrast dose: Radiation dose: Total exam DLP = 899.22 mGy-cm. This CT exam was performed using one or more of the following dose reduction techniques: Automated exposure control, adjustment of the mA and/or kV according to patient size, and/or use of iterative reconstruction technique. FINDINGS: LOWER THORAX: Unremarkable. LIVER: Unremarkable. No gross lesion or ductal dilatation. GALLBLADDER AND BILE DUCTS: Status post cholecystectomy. PANCREAS: Unremarkable. No gross lesion or ductal dilatation. SPLEEN: Unremarkable. ADRENALS: Unremarkable. No mass. KIDNEYS AND URETERS: Unremarkable. No hydronephrosis. No solid mass. VASCULATURE: Unremarkable. No aortic aneurysm. No aortic atherosclerotic calcification or mural plaque present. BOWEL: Colonic diverticulosis. APPENDIX: Unremarkable. Normal appendix. PERITONEUM: Unremarkable. No free fluid. No free air. LYMPH NODES: Unremarkable. No enlarged lymph nodes. BLADDER: Unremarkable. REPRODUCTIVE: Unremarkable. BONES: No acute fracture. OTHER FINDINGS: None. IMPRESSION: Status post cholecystectomy. No acute pathology.
[2018-11-08] MEDS: Albuterol HFA 90 mcg/actuation (8 g) INH PRN ×2 (01:58→09:14)
--- NOTE | 2018-11-08 03:22 | CON ---
DATE: 11/07/2018 INITIAL CONSULTATION HISTORY OF PRESENT ILLNESS: This is a 63-year-old female with longstanding psychiatric history who was admitted to psych floor for decompensation. Medical consultation was called for history and physical and medical followup as the patient will be in the psychiatry floor. The patient denied any symptoms of shortness of breath. The patient smokes more than 30 pack years, and she has no symptoms of any cough or expectoration. The patient is compliant with bronchodilators. REVIEW OF SYSTEMS: Also revealed that there is foul-smelling discharge vaginally. No abdominal pain and no symptoms of dysuria. Other review of system is negative. ALLERGIES: NO KNOWN ALLERGY. MEDICATIONS: Were reviewed as per MAR and ordered. SOCIAL HISTORY: Smoking more than 30-pack years. No ETOH or substance abuse. FAMILY HISTORY: Noncontributory. PAST MEDICAL HISTORY: COPD, osteoarthritis, morbid obesity. PHYSICAL EXAMINATION: GENERAL: The patient is in bed, not in any cardiopulmonary distress at the time of this examination. VITAL SIGNS: Blood pressure 117/71, temperature 97.8, respiratory rate 18, and pulse 71. HEENT: Pupils equal, reactive to light. Normal-appearing mucosa of the conjunctivae, oropharynx, and nasal membrane mucosa. NECK: Supple. No JVD. No carotid bruit. No lymph node. No thyromegaly. CHEST AND LUNGS: Bilateral symmetrical expansion. Good air exchange. No rales. No rhonchi. CARDIOVASCULAR SYSTEM: PMI not localized. S1 and S2. No additional sounds. ABDOMEN: Normoactive bowel sounds. No tenderness. No organomegaly. No masses. EXTREMITIES: No cyanosis. No clubbing. No edema. CENTRAL NERVOUS SYSTEM: Alert, awake, oriented x2. No neurological deficit could be appreciated. ASSESSMENT: Chronic obstructive pulmonary disease, smoker. Rule out possible vaginitis versus rectovaginal fistula. PLAN: Check CAT scan of the abdomen and pelvis. PRODUCT REPRESENTATIVE consult and follow the recommendations. Re-order bronchodilators including long-acting antimuscarinic mediations. We will follow up with you. Anthony Gonsales MD
[2018-11-08] MEDS: Oxycodone/Acetaminophen 5/325 mg Tab PO PRN ×3 (06:27→22:22)
[2018-11-08] MEDS: Tiotropium 18 mcg Cap For Inhalation INH SCH (08:12)
--- NOTE | 2018-11-08 11:56 | PCM.PYCHPN ---
Psychiatric Progress Note - Psychiatric Progress Note Patient seen today, length of contact: Pt evaluated, case discussed with team, chart reviewed Patient Chief Complaint: "I'm depressed." Problems Identified/Issues Discussed: Pt continues to report feeling depressed and hopeless w/ poor sleep and appetite. No acute AH/VH/paranoia/delusions/SI/HI. We discussed continued titration of medications. Medication Change: Yes (Increase Seroquel) Medical Record Reviewed: Yes Consults ordered or reviewed: Medicine consult Mental Status Examination - Cognitive Function Orientation: Person, Place, Situation, Time Memory: Intact Attention: WNL Concentration: Poor Association: WNL Fund of Knowledge: Poor Decription of patient's judgement and insights: Improving I/J - Mood Mood: Depressed, Anxious - Affect Affect: Constricted, Depressed - Speech Speech: Appropriate - Formal Thought Process Formal Thought Process: Circumstantial Psychotic Thoughts and Behaviors: No AH/VH/paranoia/delusions - Suicidal Ideation Suicidal Ideation: No - Homicidal Ideation Homicidal Ideation: No Goal/Treatment Plan - Goal/Treatment Plan Need for Continued Stay: Severe depression anxiety, Discharge may exacerbated symptoms Progress Toward Problem(s) and Goals/Treatment Plan: Major Depressive Disorder; Generalized Anxiety Disorder -Increase Seroquel -Increase Wellbutrin tomorrow AM -Medicine consult -Individual and group therapy -Psychoeducation -Disposition planning Estimated Date of D/C: 11/12/18
--- NOTE | 2018-11-08 12:10 | PCM.PYCHPN ---
Psychiatric Progress Note - Psychiatric Progress Note Patient seen today, length of contact: Pt evaluated, case discussed with team, chart reviewed Patient Chief Complaint: "I'm depressed." Problems Identified/Issues Discussed: Pt continues to report feeling depressed and hopeless w/ poor sleep and appetite. No acute AH/VH/paranoia/delusions/SI/HI. We discussed continued titration of medications. Medication Change: No Medical Record Reviewed: Yes Mental Status Examination - Cognitive Function Orientation: Person, Place, Situation, Time Memory: Intact Attention: WNL Concentration: Poor Association: WNL Fund of Knowledge: Poor Decription of patient's judgement and insights: Improving I/J - Mood Mood: Depressed, Anxious - Affect Affect: Constricted, Depressed - Speech Speech: Appropriate - Formal Thought Process Formal Thought Process: Circumstantial Psychotic Thoughts and Behaviors: No AH/VH/paranoia/delusions - Suicidal Ideation Suicidal Ideation: No - Homicidal Ideation Homicidal Ideation: No Goal/Treatment Plan - Goal/Treatment Plan Need for Continued Stay: Severe depression anxiety, Discharge may exacerbated symptoms Progress Toward Problem(s) and Goals/Treatment Plan: Major Depressive Disorder; Generalized Anxiety Disorder -Increase Seroquel -Increase Wellbutrin tomorrow AM -Medicine consult -Individual and group therapy -Psychoeducation -Disposition planning Estimated Date of D/C: 11/12/18
[2018-11-08 12:31] LABS: SQUAMOUS EPITHIAL 3 /hpf (0-5); URINE BILIRUBIN NEGATIVE (NEGATIVE); URINE BLOOD NEGATIVE (NEGATIVE); URINE CLARITY CLEAR (Clear); URINE COLOR YELLOW (YELLOW); URINE GLUCOSE (UA) NEG (NEGATIVE); URINE LEUKOCYTE ESTERASE NEG Leu/uL (Negative); URINE PROTEIN NEGATIVE (NEGATIVE); URINE UROBILINOGEN 0.2-1.0 mg/dL (0.2-1.0)
--- NOTE | 2018-11-08 23:40 | PN ---
DATE: 11/08/2018 DAILY PROGRESS NOTE SUBJECTIVE: The patient is seen today, 11/08/2018. She is not in any cardiopulmonary distress. CAT scan of the abdomen and pelvis was unremarkable. PHYSICAL EXAMINATION: VITAL SIGNS: Blood pressure 129/66, temperature 98.1, respiratory rate 18, and pulse 86. HEENT: Pupils equal and reactive to light. Normal-appearing mucosa of the conjunctivae, oropharynx, and nasal membrane mucosa. NECK: Supple. No JVD. No carotid bruit. No lymph node. No thyromegaly. CHEST AND LUNGS: Bilateral symmetrical expansion. Good air exchange. No rales. No rhonchi. CARDIOVASCULAR SYSTEM: PMI not localized. S1 and S2. No additional sounds. ABDOMEN: Normoactive bowel sounds. No tenderness. No organomegaly. No masses. EXTREMITIES: No cyanosis, no clubbing, no edema. CENTRAL NERVOUS SYSTEM: Alert, awake, oriented x2. No neurological deficit could be appreciated. ASSESSMENT: Chronic obstructive pulmonary disease, smoker, morbid obesity, osteoarthritis, status post abdominal hernia repair surgery. PLAN: Continue current medications and management and bronchodilators. We will follow with you. Anthony Gonsales MD
[2018-11-09] MEDS: Albuterol HFA 90 mcg/actuation (8 g) INH PRN (00:43)
[2018-11-09] MEDS: Oxycodone/Acetaminophen 5/325 mg Tab PO PRN (06:01)
[2018-11-09] MEDS: Tiotropium 18 mcg Cap For Inhalation INH SCH (08:20)
[2018-11-09] MEDS: buPROPion SR 150 MG TABLET PO SCH (08:20)
--- NOTE | 2018-11-09 09:34 | PCM.PYCHPN ---
Psychiatric Progress Note - Psychiatric Progress Note Patient seen today, length of contact: Pt evaluated, case discussed with team, chart reviewed Patient Chief Complaint: "I'm depressed." Problems Identified/Issues Discussed: Patient continues to report feeling depressed, hopeless, with poor sleep, low motivation and low energy. She continues to want to spend most of her day in her room and patient is encouraged to get out of bed, participate in groups and shower. We discussed continued titration of Wellbutrin. No AH/VH/SI/HI. Medication Change: Yes (Increase Wellbutrin) Medical Record Reviewed: Yes Consults ordered or reviewed: Medicine consult Mental Status Examination - Cognitive Function Orientation: Person, Place, Situation, Time Memory: Intact Attention: WNL Concentration: Poor Association: WNL Fund of Knowledge: WNL Decription of patient's judgement and insights: Improving I/J - Mood Mood: Depressed, Anxious - Affect Affect: Constricted, Depressed - Speech Speech: Appropriate - Formal Thought Process Formal Thought Process: Circumstantial Psychotic Thoughts and Behaviors: Denies AH/VH/paranoia - Suicidal Ideation Suicidal Ideation: No - Homicidal Ideation Homicidal Ideation: No Goal/Treatment Plan - Goal/Treatment Plan Need for Continued Stay: Severe depression anxiety, Discharge may exacerbated symptoms Progress Toward Problem(s) and Goals/Treatment Plan: Major Depressive Disorder; Generalized Anxiety Disorder -Increase Wellbutrin -Continue Seroquel -Medicine consult -Individual and group therapy -Psychoeducation -Disposition planning Estimated Date of D/C: 11/12/18
[2018-11-10] MEDS: Albuterol HFA 90 mcg/actuation (8 g) INH PRN (06:03)
[2018-11-10] MEDS: buPROPion SR 150 MG TABLET PO SCH (08:26)
[2018-11-10] MEDS: Tiotropium 18 mcg Cap For Inhalation INH SCH (08:26)
--- NOTE | 2018-11-10 09:48 | PCM.PYCHPN ---
Psychiatric Progress Note - Psychiatric Progress Note Patient seen today, length of contact: Pt evaluated, case discussed with team, chart reviewed Patient Chief Complaint: "I'm depressed." Problems Identified/Issues Discussed: Patient continues to report feeling depressed, hopeless, with poor sleep, low motivation and low energy. We discussed continued titration of Seroquel. No AH/VH/SI/HI. Medication Change: Yes (Increase Seroquel) Medical Record Reviewed: Yes Consults ordered or reviewed: Medicine consult Mental Status Examination - Cognitive Function Orientation: Person, Place, Situation, Time Memory: Intact Attention: WNL Concentration: WNL Association: WNL Fund of Knowledge: [facility] Decription of patient's judgement and insights: Improving I/J - Mood Mood: Depressed, Anxious - Affect Affect: Constricted, Depressed - Speech Speech: Appropriate - Formal Thought Process Formal Thought Process: No Impairment Psychotic Thoughts and Behaviors: Denies AH/VH/paranoia - Suicidal Ideation Suicidal Ideation: No - Homicidal Ideation Homicidal Ideation: No Goal/Treatment Plan - Goal/Treatment Plan Need for Continued Stay: Severe depression anxiety, Discharge may exacerbated symptoms Progress Toward Problem(s) and Goals/Treatment Plan: Major Depressive Disorder; Generalized Anxiety Disorder -Continue Wellbutrin SR 150 mg PO Daily -Increase Seroquel to 200 mg PO HS -Medicine consult -Individual and group therapy -Psychoeducation -Disposition planning Estimated Date of D/C: 11/12/18
[2018-11-10] MEDS: Oxycodone/Acetaminophen 5/325 mg Tab PO PRN (11:55)
[2018-11-11] MEDS: Oxycodone/Acetaminophen 5/325 mg Tab PO PRN ×2 (04:36→21:17)
[2018-11-11] MEDS: buPROPion SR 150 MG TABLET PO SCH (08:38)
[2018-11-11] MEDS: Tiotropium 18 mcg Cap For Inhalation INH SCH (08:38)
--- NOTE | 2018-11-11 10:58 | PCM.PYCHPN ---
Psychiatric Progress Note - Psychiatric Progress Note Patient seen today, length of contact: Pt evaluated, case discussed with team, chart reviewed Patient Chief Complaint: "I'm depressed." Problems Identified/Issues Discussed: Patient reports that her mood is improving. She denies acute AH/VH/SI/HI. Psychoeducation provided on the importance of psychotherapy. No adverse effects to medications reported. Medication Change: No Medical Record Reviewed: Yes Consults ordered or reviewed: Medicine consult Mental Status Examination - Cognitive Function Orientation: Person, Place, Situation, Time Memory: Intact Attention: WNL Concentration: WNL Association: WNL Fund of Knowledge: [facility] Decription of patient's judgement and insights: Improving I/J - Mood Mood: Depressed - Affect Affect: Constricted - Speech Speech: Appropriate - Formal Thought Process Formal Thought Process: No Impairment Psychotic Thoughts and Behaviors: Denies AH/VH/paranoia - Suicidal Ideation Suicidal Ideation: No - Homicidal Ideation Homicidal Ideation: No Goal/Treatment Plan - Goal/Treatment Plan Need for Continued Stay: Severe depression anxiety, Discharge may exacerbated symptoms Progress Toward Problem(s) and Goals/Treatment Plan: Major Depressive Disorder; Generalized Anxiety Disorder -Continue Wellbutrin SR 150 mg PO Daily -Continue Seroquel 200 mg PO HS -Medicine consult -Individual and group therapy -Psychoeducation -Disposition planning- likely discharge to home tomorrow as patient is improving clinically Estimated Date of D/C: 11/12/18
[2018-11-11 11:04] VITALS: BMI 49.9
[2018-11-12 06:44] VITALS: BP 141/79; PULSE 76; RESP 19; TEMP 97.3
[2018-11-12] MEDS: Tiotropium 18 mcg Cap For Inhalation INH SCH (09:00)
[2018-11-12] MEDS: buPROPion SR 150 MG TABLET PO SCH (09:01)
[2018-11-12] MEDS: Oxycodone/Acetaminophen 5/325 mg Tab PO PRN (10:43)
--- NOTE | 2018-11-12 10:56 | PCM.PYCHDC ---
Mental Status Examination - Mental Status Examination Orientation: Person, Place, Situation, Time Memory: Intact Mood: Neutral Affect: Broad Speech: Appropriate Attention: WNL Concentration: WNL Association: WNL Fund of Knowledge: WNL Formal Thought Process: No Impairment Description of patient's judgement and insight: Fair I/J Psychotic Thoughts and Behaviors: Denies AH/VH/paranoia Suicidal Ideation: No Current Homicidal Ideation?: No Discharge Summary - Discharge Note Reason for Hospitalization: 63 yo female admitted w/ severe depression w/ sleep/appetite disturbances, hopelessness. Consultations:: List each consultation separately and include: 1. Reason for request. 2. Findings. 3. Follow-up Consultations: Medicine consult Summary of Hospital Course include:: 1. Description of specific treatment plan utilized for patients during their course of treatmen. 2. Summarize the time- course for resolution of acute symptoms and/or regressed behaviors. 3. Describe issues identified and worked on during hospitalization. 4. Describe medication utilized. 5. Describe medical problems identified and treated. 6. Reassessment of suicide risk Summary of Hospital Course: Patient was admitted to the psychiatry unit. Individual and group therapy were provided. Patient was stabilized on Wellbutrin SR 150 mg PO Daily and Seroquel 200 mg PO HS. Patient reports improvement in mood. She denies acute AH/VH/SI/HI. She is psychiatrically stable for discharge at this time. - Diagnosis (1) Major depressive disorder Current Visit: No Status: Chronic (2) Generalized anxiety disorder Current Visit: No Status: Chronic - Final Diagnosis (DSM 5) Condition upon Discharge: STABLE DSM 5: Major Depressive Disorder; Generalized Anxiety Disorder; Personality Disorder NOS Disposition: HOME/ ROUTINE Follow-up Treatment Plan: Major Depressive Disorder; Generalized Anxiety Disorder; Personality Disorder NOS -Continue Wellbutrin SR 150 mg PO Daily -Continue Seroquel 200 mg PO HS -Medicine consult -Individual and group therapy -Psychoeducation -Discharge with outpatient follow-up Prescriptions/Medication Reconciliation: Albuterol HFA [Ventolin HFA 90 mcg/actuation (8 g)] 2 puff INH RQ4 PRN #1 inhaler PRN Reason: Shortness Of Breath buPROPion SR [Wellbutrin SR 150 MG] 150 mg PO DAILY #30 tab QUEtiapine [SEROquel] 200 mg PO HS #30 tab Tiotropium [Spiriva] 18 mcg INH DAILY #1 cap Zolpidem [Ambien] 5 mg PO HS PRN #30 tab PRN Reason: Insomnia - Smoking Cessation Smoking Cessation Medication prescribed: Yes Reason for not providing: Patient declined outpatient prescription; given patch during admission - Antipsychotic Medications Pt discharged on 2 or more routine antipsychotic medications: No
--- NOTE | 2018-11-12 21:40 | PN ---
DATE: 11/12/2018 SUBJECTIVE: The patient is seen today on 11/12/2018. PHYSICAL EXAMINATION: GENERAL: She is not in any cardiopulmonary distress. VITAL SIGNS: Blood pressure is 141/79, temperature 97.3, respiratory rate 19, and pulse 76. HEENT: Pupils equal and reactive to light. Normal-appearing mucosa of the conjunctivae, oropharynx, and nasal membrane mucosa. NECK: Supple. No JVD. No carotid bruit. No lymph node. No thyromegaly. CHEST AND LUNGS: Bilateral symmetrical expansion. Good air exchange. No rales, no rhonchi. CARDIOVASCULAR SYSTEM: PMI not localized. S1, S2. No additional sounds. ABDOMEN: Normoactive bowel sounds. No tenderness. No organomegaly. No masses. EXTREMITIES: No cyanosis, no clubbing, no edema. CENTRAL NERVOUS SYSTEM: Alert, awake, oriented x2. Moves all extremities equally. ASSESSMENT: Chronic obstructive pulmonary disease, smoker, morbid obesity. PLAN: Continue current medications and bronchodilators, and we will sign off, and please call us if any further medical assistance is needed. Anthony Gonsales MD
== END 2018-11-12 16:00 | disposition home or self-care (01) | DRG 426 ==
LOC: H.ER 04:51 → H.ERHOLD 05:12 → H.STEP 05:39
PROVIDERS: ADMIT Psychiatry & Neurology Psychiatry; ATTEND Psychiatry & Neurology Psychiatry
PROC: GZ51ZZZ Individual Psychotherapy, Behavioral (ICD-10-PCS; 2018-11-06)
PROC: GZ56ZZZ Individual Psychotherapy, Supportive (ICD-10-PCS; 2018-11-06)
PROC: GZHZZZZ Group Psychotherapy (ICD-10-PCS; principal; 2018-11-08)
DX: F32.9 Major depressive disorder, single episode, unspecified (principal); J44.9 Chronic obstructive pulmonary disease, unspecified; F41.1 Generalized anxiety disorder; F60.9 Personality disorder, unspecified; M19.90 Unspecified osteoarthritis, unspecified site; R45.851 Suicidal ideations; E66.01 Morbid (severe) obesity due to excess calories; Z68.42 Body mass index [BMI] 45.0-49.9, adult; F17.200 Nicotine dependence, unspecified, uncomplicated